=== PATIENT | male | born 1985 | race Caucasian/White ===

== ENCOUNTER → 2020-06-10 | Outpatient (CLI) | payer BC ==
--- NOTE | 2020-06-10 13:14 | Diagnostic Imaging Report ---
INDICATION: Foot pain. COMPARISON: None. FINDINGS: Multiple radiographic views of the left foot demonstrate no acute fracture or dislocation. There are no focal osseous lesions. There is no soft tissue swelling. Joint spaces are well maintained. No radiopaque foreign bodies are seen. Small plantar calcaneal enthesophyte is noted. Measures approximately 4 mm. IMPRESSION: No acute fractures or dislocations of the left foot. Dictated by: Dictated on workstation # [id number]
== END ==
LOC: RAD FS 12:40
PROVIDERS: ATTEND Nurse Practitioner Family
DX: M72.2 Plantar fascial fibromatosis (principal)
CPT/HCPCS: 73630

== ENCOUNTER 2021-04-30 13:17 | Emergency (ER) | payer BC, OTHER ==
[~2021-04-30] VITALS: Ht 172.7 cm; Wt 120.0 kg
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
[2021-04-30] MEDS ORDERED: ACETAMINOPHEN 500 MG TAB (TYLENOL) PO ONE (13:30)
[2021-04-30] MEDS ORDERED: OXYC5TAB PO (13:37)
[2021-04-30] MEDS ORDERED: ACET-2267 PO (13:37)
[2021-04-30 13:44] VITALS: BP 176/100
--- NOTE | 2021-04-30 13:48 | Diagnostic Imaging Report ---
Indication: Left shoulder injury. Comparison: None Findings: 2 views of the left clavicle demonstrate a comminuted displaced mid clavicle fracture. The AC and glenohumeral joints are intact. There is no osseous lesion. Impression: Left clavicle fracture Dictated by: Dictated on workstation # [id number]
== END 2021-04-30 13:45 | disposition home or self-care (01) ==
LOC: EDUNIT# 13:17 → ER FS 13:18
DX: S42.002A Fracture of unspecified part of left clavicle, initial encounter for closed fracture (principal); V86.99XA Unspecified occupant of other special all-terrain or other off-road motor vehicle injured in nontraffic accident, initial encounter
CPT/HCPCS: 73000; 99283; A4565

== ENCOUNTER → 2021-05-05 | Outpatient (CLI) | payer OTHER ==
[~2021-05-05] MED LIST: ACET-2267 PO; OXYC5TAB PO
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
== END ==
LOC: RAD FS 15:23
PROVIDERS: ATTEND Nurse Practitioner
DX: S42.022A Displaced fracture of shaft of left clavicle, initial encounter for closed fracture (principal); V89.2XXA Person injured in unspecified motor-vehicle accident, traffic, initial encounter
CPT/HCPCS: 71250

== ENCOUNTER 2021-05-07 15:26 | Emergency (ER) | payer OTHER ==
[~2021-05-07] VITALS: Ht 165 cm; Wt 116.0 kg
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
[2021-05-07] MEDS ORDERED: KETOROLAC 30 MG/ML VIAL IVP STA (15:36)
[2021-05-07 15:40] LABS: BASOPHILS # (AUTO) 0.1 10^3/uL (0.0-0.1); BASOPHILS % (AUTO) 1 % (0-10); EOSINOPHILS # (AUTO) 0.3 10^3/uL (0.0-0.3); EOSINOPHILS % (AUTO) 3 % (0-10); HEMATOCRIT 48 % (40-54); HEMOGLOBIN 15.9 g/dL (13.3-17.7); LYMPHOCYTES # (AUTO) 2.1 10^3/uL (1.0-4.0); LYMPHOCYTES % (AUTO) 21 % (12-44); MEAN CORPUSCULAR HEMOGLOBIN 27 pg (25-34); MEAN CORPUSCULAR HGB CONC 34 g/dL (32-36); MEAN CORPUSCULAR VOLUME 79 fL (80-99); MEAN PLATELET VOLUME 9.4 fL (9.0-12.2); MONOCYTES # (AUTO) 0.7 10^3/uL (0.0-1.0); MONOCYTES % (AUTO) 7 % (0-12); NEUTROPHILS # (AUTO) 6.7 10^3/uL (1.8-7.8); NEUTROPHILS % (AUTO) 68 % (42-75); PLATELET COUNT 307 10^3/uL (130-400)
[2021-05-07 15:47] VITALS: BP 146/91
[2021-05-07 15:49] LABS: PROTHROMBIN TIME PATIENT 13.2 SEC (12.2-14.7)
[2021-05-07 16:01] LABS: ALBUMIN 4.5 GM/DL (3.2-4.5); BILIRUBIN,TOTAL 0.5 MG/DL (0.1-1.0); CALCIUM 9.3 MG/DL (8.5-10.1); CREATININE SERUM 0.93 MG/DL (0.60-1.30); MAGNESIUM 2.1 MG/DL (1.6-2.4); TOTAL PROTEIN 8.1 GM/DL (6.4-8.2)
--- NOTE | 2021-05-07 16:01 | Diagnostic Imaging Report ---
INDICATION: Chest pain. EXAMINATION: Chest, 05/07/2021. FINDINGS: The heart is unremarkable. Pulmonary vasculature normal. Lungs demonstrate low lung volumes. No infiltrates or effusions. No pneumothorax. There is a fracture of the left mid clavicle comminuted and displaced in nature. IMPRESSION: 1. No acute cardiopulmonary process. 2. Left clavicular fracture. Dictated by: Dictated on workstation # [id number]
== END 2021-05-07 16:30 | disposition home or self-care (01) ==
LOC: EDUNIT# 15:26 → ER FS 15:27
DX: S42.022A Displaced fracture of shaft of left clavicle, initial encounter for closed fracture (principal); S20.212A Contusion of left front wall of thorax, initial encounter; V86.35XA Unspecified occupant of 3- or 4- wheeled all-terrain vehicle (ATV) injured in traffic accident, initial encounter
CPT/HCPCS: 36415; 71046; 80053; 83735; 84484; 85025; 85379; 85610; 85730; 93005; 93041

== ENCOUNTER → 2021-11-07 | Outpatient (CLI) | payer OTHER ==
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
== END ==
LOC: RAD FS 10:32
PROVIDERS: ATTEND Nurse Practitioner
DX: S42.022D Displaced fracture of shaft of left clavicle, subsequent encounter for fracture with routine healing (principal); X58.XXXD Exposure to other specified factors, subsequent encounter
CPT/HCPCS: 73000